=== PATIENT | male | born 1985 | race Caucasian/White ===

== ENCOUNTER 2016-09-18 16:35 | Emergency (ER) | payer BC, OTHER ==
[~2016-09-18] VITALS: Ht 177.8 cm; Wt 104.3 kg
--- NOTE | 2016-09-18 17:14 | ED Upper Extremity ---
General Chief Complaint: Upper Extremity Stated Complaint: L ARM PAIN Nursing Triage Note: PT STATES L UPPER ARM CAUGHT WHILE PUTTING TOOL BOX ON TRUCK. STATE BICEPT HURTING AND TIGHT WILL NOT RELAX Nursing Sepsis Screen: No Definite Risk Source: patient Exam Limitations: no limitations History of Present Illness Time seen by provider: 17:00 Initial Comments 22-year-old male patient presents to the emergency department complains of left upper arm pain beginning yesterday. Patient reports he was standing on his truck tire trying to hook a strap when he slipped. Caught his left upper arm on the truck bed. Complains of muscle spasms. Location Injury Occurred: outside home Onset: yesterday Pain/Injury Location: left arm Method of Injury: other (see HPI) Modifying Factors: Worse With Movement, Worse With Other (worse with palpation) Allergies and Home Medications Allergies Coded Allergies: No Known Drug Allergies (Unverified , 09/18/16) Home Medications No Active Prescriptions or Reported Meds Constitutional: no symptoms reported Respiratory: no symptoms reported Cardiovascular: no symptoms reported Musculoskeletal: see HPI, No back pain, joint pain (left upper arm), joint swelling (left upper arm), muscle cramps (left upper arm), No neck pain Skin: No change in color Psychiatric/Neurological: Denies Numbness, Denies Paresthesia, Denies Tingling , Denies Tremors, Denies Weakness All Other Systems Reviewed Negative Unless Noted: Yes (Negative excepted noted.) Past Epvglgc-Ozhyks-Zkhanp Hx Patient Social History Alcohol Use: Denies Use Recreational Drug Use: No Smoking Status: Never a Smoker Recent Foreign Travel: No Contact w/Someone Who Travel: No Recent Infectious Disease Expo: No Surgeries HX Surgeries: No Respiratory Hx Respiratory Disorders: No Cardiovascular Hx Cardiac Disorders: No Neurological Hx Neurological Disorders: No Musculoskeletal Hx Musculoskeletal Disorders: No Reviewed Nursing Assessment Reviewed/Agree w Nursing PMH: Yes Family Medical History Significant Family History: No Pertinent Family Hx Physical Exam Vital Signs Capillary Refill : Less Than 3 Seconds General Appearance: WD/WN, no apparent distress Neck: non-tender, full range of motion, supple, normal inspection Cardiovascular: normal peripheral pulses, regular rate, rhythm, no murmur Respiratory: chest non-tender, lungs clear, normal breath sounds, no respiratory distress Back: normal inspection, no vertebral tenderness Shoulder: normal ROM, bone tenderness (left mid to distal humerus TTP.), No deformity, No ecchymosis, pain (left mid to distal humerus), soft tissue tenderness (left mid to distal humerus ttp.), swelling (mild swelling noted of the distal humerus.) Elbow/Forearm: normal inspection, non-tender, no evidence of injury, normal ROM , Left Wrist: Yes normal inspection, Yes non-tender, Yes no evidence of injury, Yes normal ROM Hand: normal inspection, non-tender, no evidence of injury, normal ROM, Left Neurologic/Tendon: normal sensation, normal motor functions, normal tendon functions, responds to pain, no evidence tendon injury Neurologic/Psychiatric: no motor/sensory deficits, alert, normal mood/affect, oriented x 3 Skin: normal color, warm/dry, No cyanosis, No cool, No diaphoresis, No ecchymosis, No mottled Progress/Results/Core Measures Results/Orders My Orders Vital Signs/I&O Blood Pressure Mean: 90 Diagnostic Imaging Diagonstic Imaging: Xray Plain Films/CT/US/NM/MRI: other (humerus) Comments FINDINGS: The humerus has an unremarkable appearance. The visualized portions of the shoulder and elbow are unremarkable. Soft tissues are unremarkable. IMPRESSION: 1. Negative for acute bony abnormality of the humerus. Dictated by: Dictated on workstation # [id number] Reviewed: Reviewed by Me (radiology report reviewed by me) Departure Communication Progress Notes Diagnostic findings discussed with the patient. Plan for discharge to home. All return precautions were discussed with the patient as described in the discharge instructions of this report. Patient voices understanding and agrees with the treatment plan. Impression Impression: Primary Impression: Contusion of arm, left Qualified Codes: S40.022A - Contusion of left upper arm, initial encounter Disposition: 01 HOME, SELF-CARE Condition: Improved Departure-Patient Inst. Decision time for Depature: 18:15 Referrals: EUGENIA EGAN DO (PCP) Primary Care Physician Patient Instructions: Contusion (DC) Add. Discharge Instructions: All discharge instructions reviewed with patient and/or family. Voiced understanding. continue usual home medications. Tylenol extra strength over- the-counter as directed for pain. Ibuprofen 800 mg by mouth every 8 hours as needed for pain. Elevate the left arm on pillows. Ice pack or heating pad as needed for pain. no lifting greater than 10 pounds the left arm for 5-7 days. Then increase activity as tolerated. Follow-up with your family practitioner if no improvement in symptoms in 7-10 days. Return to the emergency department for worsened pain, numbness, weakness, discoloration, or any other concerns. Scripts No Active Prescriptions or Reported Meds Work/School Note: Work Release Form Date Seen in the Emergency Department: Sep 18, 2016 Return to Work: September 21, 2016 Other Restrictions Listed Below: no lifting >10 lbs with the left arm x5- 7d ALISSON MAY Sep 18, 2016 17:14
--- NOTE | 2016-09-18 17:46 | Diagnostic Imaging Report ---
INDICATION: Upper arm caught between tool box and truck. Bruising and pain. TECHNIQUE: 2 views of the left humerus. CORRELATION STUDY: None FINDINGS: The humerus has an unremarkable appearance. The visualized portions of the shoulder and elbow are unremarkable. Soft tissues are unremarkable. IMPRESSION: 1. Negative for acute bony abnormality of the humerus. Dictated by: Dictated on workstation # [id number]
[2016-09-18 18:23] VITALS: BP 127/72
== END 2016-09-18 18:23 | disposition home or self-care (01) ==
LOC: EDUNIT# 16:35 → ER 16:38
DX: S40.022A Contusion of left upper arm, initial encounter (principal); W23.1XXA Caught, crushed, jammed, or pinched between stationary objects, initial encounter; Y99.8 Other external cause status
CPT/HCPCS: 73060; 99282